=== PATIENT | female | born 1980 | race Two or more races ===

== ENCOUNTER 2017-11-29 16:09 | Emergency (ER) | payer OTHER ==
[~2017-11-29] VITALS: Ht 160 cm; Wt 53.1 kg
== END 2017-11-29 20:41 ==
LOC: ER 16:09
DX: L27.1 Localized skin eruption due to drugs and medicaments taken internally (principal); T50.995A Adverse effect of other drugs, medicaments and biological substances, initial encounter; R53.81 Other malaise

== ENCOUNTER 2018-08-12 09:42 | Emergency (ER) | payer OTHER ==
[~2018-08-12] VITALS: Ht 160 cm; Wt 52.2 kg
== END 2018-08-12 12:04 | disposition home or self-care (01) ==
LOC: ER 09:42
DX: L30.8 Other specified dermatitis (principal)